=== PATIENT | female | born 2000 | race Caucasian/White ===

== ENCOUNTER 2023-06-25 23:06 | Emergency (ER) | payer OTHER ==
[~2023-06-25] VITALS: Ht 167.6 cm; Wt 91.0 kg
[2023-06-25 23:13] VITALS: BP 123/66; PULSE 84; RESP 18; TEMP 97.2; O2SAT 98
[2023-06-25 23:35] LABS: BASOPHILS % 0.4 % (0.0-2.0); EOSINOPHILS % 0.7 % (0.0-5.0); HEMATOCRIT. 37.2 % (36.0-48.0); HEMOGLOBIN. 12.6 g/dL (12.0-16.0); MEAN CORPUSCULAR HEMOGLOBIN 28.1 pg (28.0-32.0); MEAN CORPUSCULAR HGB CONC 33.8 g/dL (31.0-37.0); MONOCYTES % 4.7 % (2.0-8.0); NEUTROPHILS % 82.2 % (40.0-76.0); PLATELET 487 x1000/uL (130-400); RED BLOOD CELL COUNT 4.48 mill/uL (4.2-5.4); RED CELL DISTRIBUTION WIDTH 14.6 % (11.6-14.6); WHITE BLOOD COUNT 22.2 x1000/uL (4.5-11.0)
[2023-06-25 23:58] LABS: ALANINE AMINOTRANSFERASE 19 IU/L (10-49); ALBUMIN 4.7 g/dL (3.2-4.8); ASPARTATE AMINOTRANSFERASE 20 IU/L (<34); BILIRUBIN TOTAL 0.5 mg/dL (0.1-1.0); CALCIUM 9.2 mg/dL (8.7-10.4); CARBON DIOXIDE 23 mEq/L (21-32); CHLORIDE 108 mEq/L (98-107); CREATININE 0.7 mg/dL (0.6-1.0); GLUCOSE 96 mg/dL (70-105); POTASSIUM 3.8 mEq/L (3.5-5.1); PROTEIN TOTAL 8.3 g/dL (6.0-8.3); SODIUM 137 mEq/L (136-145); UREA NITROGEN BLOOD 15 mg/dL (9-23)
== END 2023-06-26 02:37 | disposition left against medical advice (07) ==
LOC: ER 23:06
DX: R10.9 Unspecified abdominal pain (principal); Z53.21 Procedure and treatment not carried out due to patient leaving prior to being seen by health care provider
CPT/HCPCS: 36415; 80053; 85025; 99281

== ENCOUNTER 2024-10-23 16:34 | Emergency (ER) | payer OTHER ==
[~2024-10-23] VITALS: Ht 167.6 cm; Wt 86.0 kg
[2024-10-23 16:40] VITALS: O2SAT 100
[2024-10-23 17:06] LABS: BASOPHILS % 0.5 % (0.0-2.0); EOSINOPHILS % 2.3 % (0.0-5.0); HEMATOCRIT. 38.8 % (36.0-48.0); HEMOGLOBIN. 13.0 g/dL (12.0-16.0); LYMPHOCYTES % 34.2 % (20.0-50.0); MEAN PLATELET VOLUME 7.1 fl (7.4-10.4); MONOCYTES % 6.7 % (2.0-8.0); NEUTROPHILS % 56.3 % (40.0-76.0); PLATELET 465 x1000/uL (130-400); RED BLOOD CELL COUNT 4.71 mill/uL (4.2-5.4); RED CELL DISTRIBUTION WIDTH 14.5 % (11.6-14.6)
[2024-10-23 17:26] LABS: CREATININE 0.7 mg/dL (0.6-1.0); UREA NITROGEN BLOOD 9 mg/dL (9-23)
[2024-10-23 17:33] LABS: HCG SCREEN NEGATIVE
[2024-10-23] MEDS: MAGNESIUM/ALUMINUM HYDROXIDE/SIMETHICONE 30ML UDC PO STA (17:43)
[2024-10-23] MEDS: ONDANSETRON HCL 4MG/2ML INJ IV STA (17:43)
[2024-10-23] MEDS: SODIUM CHLORIDE 0.9% 1,000 ML IV ONE (17:44)
[2024-10-23 17:46] LABS: ASPARTATE AMINOTRANSFERASE 18 IU/L (<34); BILIRUBIN DIRECT 0.1 mg/dL (<=3.0); BILIRUBIN TOTAL 0.4 mg/dL (0.1-1.0); PROTEIN TOTAL 7.5 g/dL (6.0-8.3)
[2024-10-23] MEDS ORDERED: ONDA-239 PO (18:30)
[2024-10-23 18:54] VITALS: BP 128/68; PULSE 78; RESP 16; TEMP 36.9; O2SAT 100
== END 2024-10-23 18:59 | disposition home or self-care (01) ==
LOC: ER 16:34
DX: K52.9 Noninfective gastroenteritis and colitis, unspecified (principal)
CPT/HCPCS: 99283; 96374; 96361; 80076; 80048; 84703; 85025; 36415; J2405; J7030

== ENCOUNTER 2024-12-08 10:09 | Emergency (ER) | payer OTHER ==
[~2024-12-08] VITALS: Ht 167.6 cm; Wt 91.0 kg
[~2024-12-08 10:09] MED LIST: ONDA-239 PO
[2024-12-08 10:17] VITALS: O2SAT 98
[2024-12-08] MEDS: IBUPROFEN 600MG TABLET PO ONE (11:10)
[2024-12-08] MEDS ORDERED: IBUP-2029 MT (11:19)
[2024-12-08 12:52] VITALS: BP 119/62; PULSE 87; RESP 17; TEMP 36.8; O2SAT 98
== END 2024-12-08 12:52 | disposition home or self-care (01) ==
LOC: ER 10:09
DX: S90.32XA Contusion of left foot, initial encounter (principal); X50.1XXA Overexertion from prolonged static or awkward postures, initial encounter; Y93.89 Activity, other specified; Y92.89 Other specified places as the place of occurrence of the external cause; Y99.8 Other external cause status
CPT/HCPCS: 29515; 73610; 73630; 99284

== ENCOUNTER 2024-12-15 16:12 | Emergency (ER) | payer OTHER ==
[~2024-12-15] VITALS: Ht 167.6 cm; Wt 90.7 kg
[~2024-12-15 16:12] MED LIST changes: +IBUP-2029 MT
[2024-12-15 16:13] VITALS: O2SAT 98
[2024-12-15] MEDS ORDERED: LIDO15CR TP (16:59)
[2024-12-15 17:12] VITALS: BP 117/57; PULSE 63; RESP 18; TEMP 36.8; O2SAT 98
== END 2024-12-15 17:16 | disposition home or self-care (01) ==
LOC: ER 16:13
DX: M25.472 Effusion, left ankle (principal); Z79.899 Other long term (current) drug therapy; X50.1XXA Overexertion from prolonged static or awkward postures, initial encounter
CPT/HCPCS: 99282

== ENCOUNTER 2025-01-28 07:18 | Emergency (ER) | payer OTHER ==
[~2025-01-28] VITALS: Ht 167.6 cm; Wt 82.0 kg
[~2025-01-28 07:18] MED LIST changes: +IBUP-1455 MT; -IBUP-2029 MT; +LIDO15CR TP
[2025-01-28 07:22] VITALS: O2SAT 98
[2025-01-28 08:01] LABS: CLARITY URINE CLOUDY (CLEAR); COLOR URINE YELLOW (YELLOW); GLUCOSE URINE NEGATIVE (NEGATIVE); KETONES URINE NEGATIVE (NEGATIVE); LEUKOCYTE ESTERASE URINE 2+ (NEGATIVE); NITRITE URINE NEGATIVE (NEGATIVE); OCCULT BLOOD URINE NEGATIVE (NEGATIVE); PH URINE 5.0 (4.5-8.0); PROTEIN URINE NEGATIVE (NEGATIVE); SPECIFIC GRAVITY URINE 1.023 (1.005-1.030); UROBILINOGEN URINE 0.2 E.U./dL (0.2-1.0)
[2025-01-28 08:30] LABS: SQUAMOUS EPITHELIAL CELL URINE 3+ /lpf (RARE/1+)
[2025-01-28] MEDS: FAMOTIDINE 20MG TABLET PO ONE (08:30)
[2025-01-28] MEDS: IBUPROFEN 400MG TABLET PO ONE (08:30)
[2025-01-28] MEDS: ONDANSETRON 4MG ODT PO ONE (08:30)
[2025-01-28 08:31] LABS: BACTERIA URINE 3+
[2025-01-28 08:33] LABS: RBC URINE NONE SEEN /hpf (0-2)
[2025-01-28 08:45] LABS: BASOPHILS % 0.5 % (0.0-2.0); EOSINOPHILS % 3.5 % (0.0-5.0); HEMATOCRIT. 36.9 % (36.0-48.0); HEMOGLOBIN. 12.1 g/dL (12.0-16.0); LYMPHOCYTES % 35.4 % (20.0-50.0); MEAN PLATELET VOLUME 7.7 fl (7.4-10.4); MONOCYTES % 6.6 % (2.0-8.0); NEUTROPHILS % 54.0 % (40.0-76.0); PLATELET 372 x1000/uL (130-400); RED BLOOD CELL COUNT 4.40 mill/uL (4.2-5.4); RED CELL DISTRIBUTION WIDTH 14.0 % (11.6-14.6)
[2025-01-28 08:59] LABS: *AMPHETAMINES SCREEN URINE NEGATIVE (NEGATIVE); *BARBITURATES SCREEN URINE NEGATIVE (NEGATIVE); *BENZODIAZEPINES SCREEN URINE NEGATIVE (NEGATIVE); *COCAINE SCREEN URINE NEGATIVE (NEGATIVE); METHADONE URINE SCREEN NEGATIVE (NEGATIVE); OPIATES URINE SCREEN NEGATIVE (NEGATIVE)
[2025-01-28 09:00] LABS: CANNABINOID URINE SCREEN PRESUMPTIVE POSITIVE (NEGATIVE); ECSTASY MDMA SCREEN URINE NEGATIVE (NEGATIVE); PHENCYCLIDINE URINE SCREEN NEGATIVE (NEGATIVE)
[2025-01-28 09:07] LABS: CREATININE 0.7 mg/dL (0.6-1.0); UREA NITROGEN BLOOD 8 mg/dL (9-23)
[2025-01-28 09:09] LABS: ASPARTATE AMINOTRANSFERASE 16 IU/L (<34); BILIRUBIN DIRECT < 0.1 mg/dL (<=3.0); BILIRUBIN TOTAL 0.2 mg/dL (0.1-1.0)
[2025-01-28 09:10] LABS: PROTEIN TOTAL 6.9 g/dL (6.0-8.3)
[2025-01-28] MEDS ORDERED: ONDA4TAB50 MT (10:01)
[2025-01-28] MEDS ORDERED: LOPE2CAP14 MT (10:01)
[2025-01-28] MEDS ORDERED: TOPUD PO (10:01)
[2025-01-28] MEDS ORDERED: IBUP-2028 MT (10:01)
[2025-01-28 10:16] VITALS: BP 126/74; PULSE 58; RESP 18; TEMP 36.9; O2SAT 100
[2025-01-28 10:16] LABS: INFLUENZA TYPE A Presumptive Negative (Pres. Neg.)
[2025-01-28 10:17] LABS: INFLUENZA TYPE B Presumptive Negative (Pres. Neg.)
== END 2025-01-28 10:21 | disposition home or self-care (01) ==
LOC: ER 07:30
DX: K52.9 Noninfective gastroenteritis and colitis, unspecified (principal); B34.9 Viral infection, unspecified; Z79.899 Other long term (current) drug therapy; Z20.822 Contact with and (suspected) exposure to COVID-19
CPT/HCPCS: 80076; 80305; 80048; 81003; 81025; 80320; 83690; 85025; 87804 ×2; 36415; 99284; 87426; Q0162; G0480